=== PATIENT | male | born 1995 | race American Indian/Alaskan Native ===

== ENCOUNTER 2020-04-28 13:13 | Emergency (ER) | payer SELFPAY ==
[2020-04-28 13:43] VITALS: BP 131/83
--- NOTE | 2020-04-28 14:20 | Emergency Department Report ---
ED Back Pain/Injury HPI - General Chief Complaint: Back Pain/Injury Stated Complaint: BACK PAIN Time Seen by Provider: 04/28/20 13:44 Source: patient Limitations: No Limitations - History of Present Illness Initial Comments: The patient was evaluated in the emergency department for symptoms described in the history of present illness. He/she was evaluated in the context of the global COVID-19 pandemic, which necessitated consideration that the patient might be at risk for infection with the virus that causes COVID-19. Institutional protocols and algorithms that pertain to the evaluation of patients at risk for COVID-19 are in a state of rapid change based on information released by regulatory bodies including the CDC and federal and state organizations. These policies and algorithms were followed during the patient's care in the emergency department. Please note that these policies, procedures and recommendations changed on a rapid basis. 25-year-old -[place] male presents to the emergency room for nontraumatic back pain for 2 weeks. Patient states that his back was hurting prior to that and he asked his brother to crack his back and since then has been having worsening pain. Patient states that [id number]-[id number] medication is not relieving his pain. Last dose this Advil was 2 days ago. Patient states intermittently he will have a slight pain in his left testicle but no pain at this time. He denies any dysuria denies any hematuria no discharge. MD Complaint: back pain Onset/Timin -: week(s) Similar Symptoms Previously: Yes Radiation: none Severity: severe Severity scale (0 -10): 8 Quality: sharp, aching Consistency: intermittent Improves With: supine Worsens With: movement, other (Bending) Associated Symptoms: denies other symptoms - Related Data Previous Rx's Medication Instructions Recorded Last Taken Type Meloxicam [Mobic] 7.5 mg PO QDAY #20 tablet 04/28/20 Unknown Rx Allergies Allergy/AdvReac Type Severity Reaction Status Date / Time No Known Allergies Allergy Unverified 04/28/20 13:39 ED Review of Systems ROS: Stated complaint: BACK PAIN Other details as noted in HPI Comment: All other systems reviewed and negative ED Past Medical Hx - Past Medical History Previous Medical History?: Yes Additional medical history: Back pain/injury - Surgical History Past Surgical History?: No - Social History Smoking Status: Current Every Day Smoker Substance Use Type: Alcohol, Marijuana - Medications Home Medications: Home Medications Medication Instructions Recorded Confirmed Last Taken Type Meloxicam [Mobic] 7.5 mg PO QDAY #20 tablet 04/28/20 Unknown Rx ED Physical Exam - General Limitations: No Limitations General appearance: alert, in no apparent distress - Head Head exam: Present: atraumatic, normocephalic - Eye Eye exam: Present: normal appearance - ENT ENT exam: Present: mucous membranes moist - Neck Neck exam: Present: normal inspection - Respiratory Respiratory exam: Present: normal lung sounds bilaterally. Absent: respiratory distress - Cardiovascular Cardiovascular Exam: Present: regular rate, normal rhythm. Absent: systolic murmur, diastolic murmur, rubs, gallop - GI/Abdominal GI/Abdominal exam: Present: soft, normal bowel sounds - Back Exam Back exam: Present: full ROM. Absent: tenderness, muscle spasm, paraspinal tenderness, vertebral tenderness - Expanded Back Exam Expanded Back exam: Negative Straight Leg Raising: Left, Right - Neurological Exam Neurological exam: Present: alert, oriented X3, normal gait - Psychiatric Psychiatric exam: Present: normal affect, normal mood - Skin Skin exam: Present: warm, dry, intact, normal color. Absent: rash ED Course Vital Signs 04/28/20 13:42 Temperature 98.7 F Pulse Rate 68 Respiratory 19 Rate Blood Pressure 131/83 O2 Sat by Pulse 100 Oximetry ED Medical Decision Making - Radiology Data Radiology results: report reviewed Patient: BRIAN LOPEZ MR#: [id number] : 1995 Acct:[id number] Age/Sex: 25 / M ADM Date: 04/28/20 Loc: ED Attending Dr: Ordering Physician: ROBLES PERDOMO Date of Service: 04/28/20 Procedure(s): XR spine lumbosacral 2-3V Accession Number(s): [id number] cc: ROBLES PERDOMO Fluoro Time In Minutes: . LUMBAR SPINE 3 VIEWS INDICATION / CLINICAL INFORMATION: back pain. COMPARISON: None available. FINDINGS: VERTEBRAE: No acute fracture. No significant malalignment. DISC SPACES / FACET JOINTS:No significant abnormality. PARASPINAL SOFT TISSUES:No significant abnormality. ADDITIONAL FINDINGS: None. Signer Name: Uvaldo Esquivel MD Signed: 04/28/2020 3:43 PM Workstation Name: [id number] Transcribed By: KAERN Dictated By: UVALDO ESQUIVEL Electronically Authenticated By: UVALDO ESQUIVEL Signed Date/Time: 04/28/201542 DD/ 42 TD/TT: - Medical Decision Making 25-year-old -[place] male presents to the emergency room for nontraumatic back pain for 2 weeks. Patient states that his back was hurting prior to that and he asked his brother to crack his back and since then has been having worsening pain. Patient states that fslx-ptn-ceihjed medication is not relieving his pain. Last dose this Advil was 2 days ago. Patient states intermittently he will have a slight pain in his left testicle but no pain at this time. He denies any dysuria denies any hematuria no discharge. X-ray of lumbar sacral is negative for any acute findings. I recommend Tylenol ibuprofen. Follow-up with a back specialist. Critical care attestation.: If time is entered above; I have spent that time in minutes in the direct care of this critically ill patient, excluding procedure time. ED Disposition Clinical Impression: Back pain Disposition: DC-01 TO HOME OR SELFCARE Is pt being admited?: No Does the pt Need Aspirin: No Condition: Stable Instructions: Acute Back Pain, Adult Additional Instructions: X-ray is negative for any acute findings. Please take pain medication as prescribed follow-up with a neurologist or orthopedic. Prescriptions: Meloxicam [Mobic] 7.5 mg PO QDAY #20 tablet Referrals: DAVIDE HERNANDEZ II, MD [Staff Physician] - 3-5 Days [facility] [Provider Group] - 3-5 Days
--- NOTE | 2020-04-28 15:48 | XRay Report ---
. LUMBAR SPINE 3 VIEWS INDICATION / CLINICAL INFORMATION: back pain. COMPARISON: None available. FINDINGS: VERTEBRAE: No acute fracture. No significant malalignment. DISC SPACES / FACET JOINTS:No significant abnormality. PARASPINAL SOFT TISSUES:No significant abnormality. ADDITIONAL FINDINGS: None. Signer Name: Uvaldo Pugh MD Signed: 04/28/2020 3:43 PM Workstation Name: [id number]
== END 2020-04-28 16:30 | disposition home or self-care (01) ==
LOC: ED 13:13
DX: M54.9 Dorsalgia, unspecified (principal); F12.90 Cannabis use, unspecified, uncomplicated; F17.200 Nicotine dependence, unspecified, uncomplicated; Z79.899 Other long term (current) drug therapy
CPT/HCPCS: 72100